=== PATIENT | female | born 1980 | race Two or more races ===

== ENCOUNTER 2020-01-12 02:58 | Emergency (ER) | payer OTHER ==
[~2020-01-12] VITALS: Ht 152.4 cm; Wt 106.6 kg
[2020-01-12 03:07] VITALS: BP 131/78
--- NOTE | 2020-01-12 03:14 | Emergency Room Report ---
History of Present Illness General Chief Complaint: Pain Source: Patient Present Illness HPI This is a 39-year-old female with no past medical history. She presents with chief complaint of left knee pain. She says she was walking and she slipped and her left leg went sideways. She says she heard a pop. Since then she is complaining of left knee pain. Pain is 9 out of 10. Unable bear weight. Worse with bearing weight. Better with rest. No fever chills but no nausea no vomiting. This occur a few hours ago. Allergies: Coded Allergies: No Known Allergies (Unverified , 01/12/20) Patient History Past Medical History: see triage record, old chart reviewed Past Surgical History: none Pertinent Family History: none Social History: Denies: smoking Now: No Immunizations: other Reviewed Nursing Documentation: PMH: Agreed; PSxH: Agreed Review of Systems Eye: Denies: eye pain, blurred vision ENT: Denies: ear pain, nose congestion, throat swelling Respiratory: Denies: cough, shortness of breath Cardiovascular: Denies: chest pain, palpitations Gastrointestinal: Denies: abdominal pain, diarrhea, nausea, vomiting Musculoskeletal: Reports: joint pain; Denies: back pain Skin: Denies: rash Neurological: Denies: headache, numbness Endocrine: Denies: increased thirst, increased urine Hematologic/Lymphatic: Denies: easy bruising All Other Systems: negative except mentioned in HPI Physical Exam Vitals unremarkable Sp02 EP Interpretation: reviewed, normal General Appearance: well appearing, no apparent distress, alert Head: normocephalic, atraumatic Eyes: bilateral eye PERRL, bilateral eye EOMI ENT: hearing grossly normal, normal pharynx Neck: full range of motion, supple, no meningismus Respiratory: chest non-tender, lungs clear, normal breath sounds Cardiovascular #1: regular rate, rhythm, no murmur Gastrointestinal: normal bowel sounds, non tender, no mass, no organomegaly, no bruit, non-distended Musculoskeletal: back normal, other - Left knee with tenderness on the medial aspect. Pulse normal. Decreased range of motion secondary to pain. Sensation normal. Psychiatric: mood/affect normal Procedures Splinting Splinting : Consent: Verbal Location: Left knee Pre-Made Type: knee immobilizer Pre-Proc Neuro Vasc Exam: normal Post-Proc Neuro Vasc Exam: normal Patient Tolerated: Well Complications: None Medical Decision Making Diagnostic Impression: Primary Impression: Left knee sprain Qualified Codes: S83.92XA - Sprain of unspecified site of left knee, initial encounter ER Course Patient with left knee injury. There is no evidence of any fracture dislocation. She has diffuse pain. There is some effusion on the x-ray. She has normal pulse. Suspect that she has ligament or meniscus injury. May benefit from MRI as an outpatient. Other X-Ray Diagnostic Results Other X-Ray Diagnostic Results : X-Ray ordered: Left knee x-rays # of Views/Limited Vs Complete: 2 View Indication: Pain EP Interpretation: Yes Interpretation: no dislocation, no soft tissue swelling, other - Joint effusion Impression: Other - no frx. effusion. Electronically Signed by: Ashutosh Mendoza MD Status: improved Disposition: HOME, SELF-CARE Condition: Stable Scripts Ibuprofen* (MOTRIN*) 600 Mg Tablet 600 MG ORAL Q6H PRN for For Pain, #30 TAB 0 Refills Prov: Ashutosh Mendoza MD 01/12/20 Hydrocodone/Acetaminophen 5-325* (HYDROCODONE/ACETAMINOPHEN 5-325*) 1 Each Tablet 1 TAB ORAL Q6H PRN for For Pain, #30 TAB 0 Refills Prov: Ashutosh Mendoza MD 01/12/20 Additional Instructions: Elevate your leg. Ice pack to the area. Use crutches and knee immobilizer for comfort. Follow-up with In 7 days. If continue with pain, you may need an MRI to check for ligament or meniscus injury. Return if symptoms worsen. Ashutosh Mendoza MD Jan 12, 2020 03:14
[2020-01-12] MEDS ORDERED: HYDROcodone/Acetamin 5/325 tab ORAL ONE (03:15)
[2020-01-12] MEDS ORDERED: IBUPROFEN600 M1 ORAL (03:41)
[2020-01-12] MEDS ORDERED: HYDROCODON-ACE1 EA15 ORAL (03:41)
[2020-01-12 03:50] VITALS: BP 138/83
--- NOTE | 2020-01-12 04:21 | Diagnostic Imaging Report ---
EXAM: XR Left Knee, 3 Views CLINICAL HISTORY: TRAUMA TECHNIQUE: Three views of the left knee. COMPARISON: No relevant prior studies available. FINDINGS: Bones/joints: Unremarkable. No acute fracture. No dislocation. Soft tissues: Unremarkable. IMPRESSION: Normal left knee x-rays.
== END 2020-01-12 03:50 | disposition home or self-care (01) ==
LOC: EMR 03:18
DX: S83.92XA Sprain of unspecified site of left knee, initial encounter (principal); W01.0XXA Fall on same level from slipping, tripping and stumbling without subsequent striking against object, initial encounter; Y93.01 Activity, walking, marching and hiking
CPT/HCPCS: 73562; Z7502; 99283